=== PATIENT | female | born 1995 | race Caucasian/White ===

== ENCOUNTER 2017-05-09 05:15 | Inpatient (IN) | payer OTHER ==
[2017-05-09] MEDS ORDERED: LIDOCAINE 1% (PF) 10 MG/ML (30 ML SDV) SQ PRN (05:49)
[2017-05-09] MEDS ORDERED: CARBOPROST TROMETHAMINE 250 MCG/ML 1 ML AMP IM PRN (05:49)
[2017-05-09] MEDS ORDERED: METHYLERGONOVINE 0.2 MG/ML 1 ML AMP IM PRN (05:49)
[2017-05-09] MEDS ORDERED: OXYTOCIN 10 UNIT/ML 1 ML VIAL IM PRN (05:49)
[2017-05-09] MEDS ORDERED: TERBUTALINE 1 MG/ML VIAL SQ PRN (05:49)
[2017-05-09] MEDS: LACTATED RINGERS 1,000 ML IV SCH ×4 (06:10→20:53)
[2017-05-09] MEDS: OXYTOCIN 20 UNITS/1000 ML NS 1,000 ML IV SCH ×2 (06:14→20:54)
[2017-05-09 06:28] LABS: Basophils % (A) 0 %; CH 30.9; CHCM 34.4; Eosinophils # (A) 0.1 k/uL (0-0.7); Eosinophils % (A) 1 %; HDW 2.77; HGB 12.7 gm/dL (11.4-16.0); Luc # (Auto) 0.32; Luc % (Auto) 3; Lymphocytes # (A) 2.1 k/uL (1.0-4.8); Lymphocytes % (A) 19 %; MCH 31.8 pg (25.0-35.0); MCHC 35.3 g/dL (31.0-37.0); MCV 90.1 fL (80.0-100.0); Mean Platelet Volume 10.1; Monocytes # (A) 0.6 k/uL (0-1.0); Monocytes % (A) 6 %; Neutrophils # (A) 7.6 k/uL (1.3-7.7); Neutrophils % (A) 71 %; RDW 13.5 % (11.5-15.5); WBC 10.8 k/uL (3.8-10.6); WBC (Perox) 10.93
--- NOTE | 2017-05-09 06:50 | P.HPOB ---
History of Present Illness H&P Date: 05/09/17 Chief Complaint: My water broke at 3:45 AM This is a 21-year-old white female 1 para 0 EDC 05/05/2017 at 40-4/7 weeks' gestation. Patient presents with a large gush of fluid which occurred at home at 0345 hours. She is having very mild irregular uterine contractions. Fetus is been active throughout the . She denies vaginal bleeding. Obstetric history is significant for blood type A+, rubella status immune. Group B strep cultures negative. VDRL testing, hepatitis B surface antigen, HIV testing, gonorrhea and chlamydia cultures, urine culture all negative. One- hour Glucola 1:30. Past medical history is significant for childhood asthma. Past surgical history left foot bunionectomy 2009. Current medications vitamins daily. ALLERGIES none known. Social history patient is single, she has never been a smoker, she denies alcohol or drug use. On exam this is a pleasant white female, 5 foot 3 inches, 164 pounds, vital signs are stable and she is afebrile. The general physical exam is within normal limits. The chest is clear in all cheney. Extremities reveal no edema. Cervix is 2 cm dilated, 80% effaced, -2 station, vertex presentation, with abundant clear fluid noted on the perineal body. heart tones are in the 150s with frequent accelerations consistent with reactive NST. There are irregular mild uterine contractions graphing on the monitor. Impression: 40-4/7 weeks single intrauterine , active spontaneous labor , all signs reassuring. Plan: Close maternal and surveillance. We will begin oxytocin augmentation per hospital protocol. I've reviewed with the patient her options for analgesia. I am anticipating a normal spontaneous vaginal delivery. Past Medical History History of Any Multi-Drug Resistant Organisms: None Reported Smoking Status: Never smoker Medications and Allergies Home Medications Medication Instructions Recorded Confirmed Type Pnv,Calcium 72/Iron/Folic Acid 1 tab PO DAILY 05/09/17 05/09/17 History [ Plus Tablet] Allergies Allergy/AdvReac Type Severity Reaction Status Date / Time No Known Allergies Allergy Verified 05/09/17 05:33 Exam - Vital Signs Vital signs: Vital Signs Temp Pulse Resp BP 05/09/17 05:41 97.8 F 83 16 129/79 Intake and Output 05/08/17 05/08/17 05/09/17 14:59 22:59 06:59 Other: Weight 74.389 kg Patient Weight 05/09/17 06:59 Weight 74.389 kg Results Result Diagrams: 05/09/17 06:08 Abnormal Lab Results - Last 24 Hours (Table) 05/09/17 Range/Units 06:08 WBC 10.8 H (3.8-10.6) k/uL
[2017-05-09 06:58] VITALS: BMI 29.0
[2017-05-09] MEDS ORDERED: SODIUM CHLORIDE 0.9% 100 ML BAG ONE (10:33)
[2017-05-09] MEDS ORDERED: BUPIVACAINE (PF) 0.25% 30 ML VIAL ONE (10:33)
[2017-05-09] MEDS ORDERED: fentaNYL (PF) 50 MCG/ML 5 ML AMP ONE (10:33)
[2017-05-09] MEDS ORDERED: CITRIC ACID-SODIUM CITRATE 15 ML CUP PO ONE (20:04)
[2017-05-09] MEDS ORDERED: LIDOCAINE 2% INJ 20 MG/ML (20 ML MDV) ONE (20:07)
[2017-05-09] MEDS ORDERED: fentaNYL (PF) 50 MCG/ML 2 ML AMP ONE (20:07)
[2017-05-09] MEDS ORDERED: ceFAZolin 1,000 MG VIAL ONE (20:07)
[2017-05-09] MEDS ORDERED: KETOROLAC 30 MG/ML 1 ML VIAL ONE (20:07)
[2017-05-09] MEDS ORDERED: BUPIVACAINE (PF) 0.25% 25 ML, fentaNYL (PF) 200 MCG in SODIUM CHLORIDE 0.9% 71 ML EPIDURAL ONE (20:31)
[2017-05-09] MEDS ORDERED: diphenhydrAMINE 50 MG CAP PO PRN (20:48)
[2017-05-09] MEDS ORDERED: HYDROmorphone PCA 5 MG/25 ML SYRINGE IV PRN (20:48)
[2017-05-09] MEDS ORDERED: NALOXONE 0.4 MG/ML 1 ML VIAL IV PRN (20:48)
[2017-05-09] MEDS ORDERED: ZOLPIDEM 5 MG TAB PO PRN (20:48)
[2017-05-09] MEDS ORDERED: diphenhydrAMINE 25 MG CAP PO PRN (20:48)
[2017-05-09] MEDS ORDERED: ONDANSETRON 4 MG/2 ML VIAL IVP PRN (20:48)
[2017-05-09] MEDS ORDERED: METOCLOPRAMIDE 5 MG/ML 2 ML VIAL IVP PRN (20:48)
[2017-05-09] MEDS ORDERED: ACETAMINOPHEN TAB 325 MG TAB PO PRN (20:48)
[2017-05-09] MEDS ORDERED: diphenhydrAMINE 50 MG/ML 1 ML VIAL IVP PRN ×2 (20:48)
--- NOTE | 2017-05-09 20:48 | P.OP ---
Date of Procedure: 05/09/17 Preoperative Diagnosis: Arrest of descent second stage Postoperative Diagnosis: Right occiput transverse, liveborn male Procedure(s) Performed: Primary low transverse section Implants: Anesthesia: epidural Surgeon: Steph Pineda Historical Site Guide #1: Sonido Phillips Estimated Blood Loss (ml): 500 IV fluids (ml): 900 Urine output (ml): 150 Pathology: other Condition: stable (Placenta) Disposition: PACU Indications for Procedure: Operative Findings: Description of Procedure: Patient became completely dilated and pushed for approximately 1 hour. There was no descent of the head, a large amount of , and occiput posterior position suspected. Decision was made to proceed with primary low transverse section. Patient is brought to the operating room and the previously placed epidural was topped off. The abdomen is prepped and draped in usual sterile fashion. The appropriate timeout is performed to assure proper patient and procedural identification. 2 g of Ancef were given. The analgesia is checked and noted to be adequate. A low transverse skin incision is made in this is carried down through the subcutaneous tissue to the fascia. Fascia is isolated, scored, extended bilaterally with curved Piedra scissors. Peritoneum is next identified and incised, there is no bowel or bladder involvement. The bladder flap is not created as the bladder is low and well from the operative field. The bladder blade is placed over the bladder to protect it from injury. A low transverse uterine incision is made in this is carried down through the thinned out myometrium and the endometrial cavity is entered. The incision is extended bluntly. The 's head is delivered in the right occiput transverse position. There is no nuchal cord noted. There is a large amount of Noted. The oropharynx, nasopharynx, and external nares were all bulb suctioned on the abdomen. Patient is officially delivered of a liveborn male infant at 2016 hours. The umbilical cord is doubly clamped and ligated., He is handed to waiting nurses for evaluation where scores of 9 and 9 at one and 5 minutes respectively are given. The placenta is delivered manually, it is inspected and noted to be intact with trivascular cord at 2017 hours. At this time the uterus is massaged and externalized. The uterus is swept clean with a sterile sponge to avoid any retained products of conception. Bilateral tubes and ovaries are inspected and noted to be normal. There are no uterine fibroids septa or defects noted. The uterus is closed in a two-step fashion, first layer running locking, second Layer imbricated. Good approximation was noted. Hemostasis is excellent. The abdomen is then suctioned with suction on guard and the uterus is gently placed back into the abdominal cavity. Bilateral gutters are inspected and cleaned. The peritoneum is allowed to close by secondary intention. The fascia is closed in a running stitch with 0 Vicryl suture with over ligation in the midline. Subcutaneous tissue is irrigated, noted to be clean and dry. It is reapproximated with 3-0 Vicryl in a running fashion. 4-0 undyed Vicryl issues for the final closure in a subcuticular manner. Steri-Strips and Mastisol are applied to the wound. Dressing is applied. Fundus is firm, midline, 18 week size. It is massaged for a small amount of residual bleeding. All sponge needle and enhancement counts are correct. Mead is noted to be draining clear urine. Estimated blood loss 500 mL, fluid replacement 900 mL crystalloids, urine production 1 50 mL's. Patient is brought back to recovery room in very good condition with stable vital signs including a temperature of 98, 100% O2 sat, respirations 16, blood pressure 98/48, pulse 90. Patient and her are requesting circumcision further son. weighs 8 lbs. 14 oz. or 4020 g.
[2017-05-10] MEDS: LACTATED RINGERS 1,000 ML IV SCH ×2 (02:15→20:05)
[2017-05-10] MEDS: KETOROLAC 30 MG/ML 1 ML VIAL IVP PRN ×3 (05:12→17:57)
--- NOTE | 2017-05-10 07:09 | P.PN ---
Subjective Principal diagnosis: Post Operative day #1 Slept well. Minimal to moderate pain. Objective - Vital Signs Vital signs: Vital Signs Temp 97.7 F 05/10/17 05:16 Pulse 78 05/10/17 05:16 Resp 16 05/10/17 05:16 BP 116/71 05/10/17 05:16 Pulse Ox 98 05/10/17 05:16 Intake & Output 05/09/17 05/10/17 05/10/17 18:59 06:59 18:59 Intake Total 40.8 Output Total 100 2550 Balance -100 -2509.2 Intake: Intake, IV Titration 40.8 Amount Oxytocin 20 Units/1000 ml 40.8 Ns 1,000 ml @ 1 MILLIUNIT/MIN 3 mls/hr IV .Q24H BRIAN Rx#:[id number] Output: Urine 100 2550 Uretheral (Mead) 400 Other: Voiding Method Indwelling Catheter - Constitutional General appearance: Present: average body habitus, cooperative - EENT Eyes: Present: PERRLA ENT: Present: hearing grossly normal - Neck Neck: Present: normal ROM Thyroid: bilateral: normal size - Respiratory Respiratory: bilateral: CTA - Cardiovascular Rhythm: regular - Genitourinary Genitourinary Comment(s): Fundus firm, midline, symmetric, nontender. Incision clean and dry, well approximated, intact. - Neurologic Neurologic: Present: CNII-XII intact - Musculoskeletal Musculoskeletal: Present: gait normal, strength equal bilaterally - Psychiatric Psychiatric: Present: A&O x's 3, appropriate affect, intact judgment & insight - Labs CBC & Chem 7: 05/09/17 06:08 Assessment and Plan Plan: Advance diet and activity. Circumcision tomorrow. Continue postoperative care. Begin Zoloft 50 mg daily. Time with Patient: Less than 30
[2017-05-10 07:24] LABS: Basophils % (A) 0 %; CH 30.9; CHCM 32.9; Eosinophils % (A) 0 %; HGB 10.8 gm/dL (11.4-16.0); Luc # (Auto) 0.15; Luc % (Auto) 1; Lymphocytes # (A) 1.7 k/uL (1.0-4.8); Lymphocytes % (A) 11 %; MCHC 31.8 g/dL (31.0-37.0); MCV 94.6 fL (80.0-100.0); Mean Platelet Volume 10.9; Monocytes # (A) 0.5 k/uL (0-1.0); Monocytes % (A) 3 %; Neutrophils # (A) 12.8 k/uL (1.3-7.7); Neutrophils % (A) 84 %; RBC 3.59 m/uL (3.80-5.40); RDW 13.8 % (11.5-15.5); WBC 15.3 k/uL (3.8-10.6); WBC (Perox) 15.74
[2017-05-10] MEDS: SENNOSIDES-DOCUSATE SODIUM 1 EACH TAB PO SCH ×2 (09:19→21:22)
[2017-05-10] MEDS: Acetaminophen-Codeine 300-30mg TAB PO PRN ×3 (09:19→23:31)
[2017-05-10] MEDS: SERTRALINE 50 MG TAB PO SCH (11:44)
[2017-05-10] MEDS ORDERED: SIMETHICONE 80 MG CHEWABLE PO PRN ×2 (21:12→21:43)
[2017-05-11] MEDS: IBUPROFEN 600 MG TAB PO PRN ×4 (02:09→21:12)
[2017-05-11] MEDS: SENNOSIDES-DOCUSATE SODIUM 1 EACH TAB PO SCH ×2 (07:44→21:18)
[2017-05-11] MEDS: SERTRALINE 50 MG TAB PO SCH (07:44)
--- NOTE | 2017-05-11 07:49 | P.PN ---
Subjective Principal diagnosis: Postoperative day #2 Slept well, pain well controlled, minimal lochia rubra. Breast-feeding going well. No complaints Objective - Vital Signs Vital signs: Vital Signs Temp 98.1 F 05/11/17 03:49 Pulse 81 05/11/17 03:49 Resp 18 05/11/17 03:49 BP 123/70 05/11/17 03:49 Pulse Ox 96 05/11/17 03:49 Intake & Output 05/10/17 05/11/17 05/11/17 18:59 06:59 18:59 Intake Total 1025 600 Output Total 1600 800 Balance -575 -200 Intake: IV 300 Lactated Ringers 1,000 ml 300 @ 125 mls/hr IV .Q8H BRIAN Rx#:[id number] Intake, IV Titration 375 Amount Lactated Ringers 1,000 ml 375 @ 125 mls/hr IV .Q8H BRIAN Rx#:[id number] Oral 350 600 Output: Urine 1600 800 Other: Voiding Method Toilet - Constitutional General appearance: Present: average body habitus, cooperative - EENT Eyes: Present: PERRLA ENT: Present: hearing grossly normal - Neck Neck: Present: normal ROM - Respiratory Respiratory: bilateral: CTA - Cardiovascular Rhythm: regular - Gastrointestinal General gastrointestinal: Present: normal bowel sounds - Genitourinary Genitourinary Comment(s): Fundus firm, midline, symmetric, 18 week size. Incision clean and dry, well approximated, intact. - Integumentary Integumentary: Present: normal - Neurologic Neurologic: Present: CNII-XII intact - Musculoskeletal Musculoskeletal: Present: gait normal, strength equal bilaterally - Psychiatric Psychiatric: Present: A&O x's 3, appropriate affect, intact judgment & insight - Labs CBC & Chem 7: 05/10/17 07:00
[2017-05-11] MEDS: OXYTOCIN 20 UNITS/1000 ML NS 1,000 ML IV SCH (09:05)
[2017-05-11] MEDS: Acetaminophen-Codeine 300-30mg TAB PO PRN (12:21)
[2017-05-12] MEDS: Acetaminophen-Codeine 300-30mg TAB PO PRN (00:08)
[2017-05-12] MEDS: IBUPROFEN 600 MG TAB PO PRN (04:55)
--- NOTE | 2017-05-12 05:42 | P.DS ---
Providers Date of admission: 05/09/17 05:36 Expected date of discharge: 05/12/17 Attending physician: Steph Pineda Primary care physician: Steph Pineda [facility] Course: This is a 21-year-old white female 1 para 0 EDC 05/05/2017 at 40-4/7 weeks' gestation. Patient presented to the hospital with spontaneous amniorrhexis which occurred at 0345 hours. She was admitted, oxytocin augmentation was started. Her was essentially unremarkable, group B strep cultures negative, rubella status immune, blood type A+. Please see my dictated history and physical for details. Patient progressed through labor and became completely dilated. She was unable to move the baby's head down after one hour of pushing. A large amount of It was noted. Patient underwent a primary low transverse section and gave to a liveborn male infant with scores of 9 and 9 at one and 5 minutes respectively. weight 4020 g or 8 lbs. 14 oz. There was an estimated blood loss at surgery of 500 mL's. Please see my dictated liver note for details. This morning the patient is doing well. She is voiding, ambulating and passing flatus without difficulty. Vital signs are stable and she is afebrile. Incision is clean and dry, intact, Steri-Strips applied. Circumcision has been performed and the infant is doing well. Fundus is firm and in the midline, symmetric and 18 week size. Pain is well controlled with ibuprofen. Breast- feeding is going well. Patient will follow-up with me in the office in 2 weeks. I have reminded her no intercourse, tampons or douching. She will use ibuprofen products, 200 mg pills, 3 every 6 hours as needed for pain. I have asked her to call me with any fevers shakes or chills, foul smelling or copious lochia, with the passage of large blood clots, with any pain not alleviated by ibuprofen, or indeed with any concerns. No driving for 2 weeks. A discussed our methods for contraception and we will discuss this further in the office. Continue vitamin daily. May continue Zoloft daily as well. Plan - Discharge Summary New Discharge Prescriptions: No Action Pnv,Calcium 72/Iron/Folic Acid [ Plus Tablet] 1 tab PO DAILY Discharge Medication List Pnv,Calcium 72/Iron/Folic Acid [ Plus Tablet] 1 tab PO DAILY 05/09/17 [ History] Follow up Appointment(s)/Referral(s): Steph Pineda MD [Primary Care Provider] - 2 Weeks Discharge Disposition: HOME SELF-CARE
[2017-05-12] MEDS: SENNOSIDES-DOCUSATE SODIUM 1 EACH TAB PO SCH (07:42)
[2017-05-12 07:46] VITALS: BP 127/70; PULSE 66; RESP 16
[2017-05-12 07:48] VITALS: TEMP 98.1
[2017-05-12] MEDS: SERTRALINE 50 MG TAB PO SCH (09:06)
== END 2017-05-12 11:50 | disposition home or self-care (01) | DRG 766 ==
LOC: FBPOP 05:15 → 4FBP 05:36
PROVIDERS: ADMIT Obstetrics & Gynecology; ATTEND Obstetrics & Gynecology
PROC: 3E0S3NZ Introduction of Analgesics, Hypnotics, Sedatives into Epidural Space, Percutaneous Approach (ICD-10-PCS; 2017-05-09)
PROC: 10D00Z1 Extraction of Products of Conception, Low, Open Approach (ICD-10-PCS; principal; 2017-05-09 20:07)
DX: O62.1 Secondary uterine inertia (principal); J45.909 Unspecified asthma, uncomplicated; O48.0 Post-term pregnancy; O32.8XX0 Maternal care for other malpresentation of fetus, not applicable or unspecified; O99.52 Diseases of the respiratory system complicating childbirth; Z3A.40 40 weeks gestation of pregnancy; Z37.0 Single live birth
CPT/HCPCS: 59025; 84112; 85025; 88307; 99213